=== PATIENT | male | born 1960 | race Caucasian/White ===

== ENCOUNTER 2017-06-03 18:46 | Emergency (ER) | payer SELFPAY ==
[~2017-06-03] VITALS: Ht 185.4 cm; Wt 78.6 kg
[~2017-06-03 18:46] MED LIST: AMLO5TAB4 PO; HYDR-3240 PO
[2017-06-03] MEDS ORDERED: SODIUM CHLORIDE FLUSH 10ML SYR IVF ONE (19:30)
[2017-06-03] MEDS ORDERED: SODIUM CHLORIDE 0.9% 1,000ML IVBOLUS ONE (19:30)
[2017-06-03] MEDS ORDERED: LABETALOL 5MG/ML, 20ML IVPush ONE (19:30)
[2017-06-03] MEDS ORDERED: LABETALOL 5MG/ML, 20ML ONE (19:43)
[2017-06-03 19:48] LABS: ASPARTATE AMINO TRANSFERASE 157 U/L (15-37); BLOOD UREA NITROGEN 15 mg/dL (7-18)
[2017-06-03 19:53] LABS: IS PT STATUS REG ER OR PRE ER? YES
[2017-06-03] MEDS ORDERED: hydrALAzine 20 MG/ML, 1ML IV ONE (20:30)
[2017-06-03 21:06] VITALS: BP 173/106
== END 2017-06-03 21:26 | disposition home or self-care (01) ==
LOC: ED 21:00
DX: I10 Essential (primary) hypertension (principal); F17.200 Nicotine dependence, unspecified, uncomplicated
CPT/HCPCS: 36415; 71010; 80053; 84484; 85025; 93005; 96361; 96374; 96375; 99285; J0360; J7030

== ENCOUNTER 2017-09-20 12:06 | Inpatient (IN) | payer MEDICAID ==
[~2017-09-20] VITALS: Ht 175.3 cm; Wt 80.0 kg
[2017-09-20] MEDS ORDERED: NITROGLYCERIN SINGLE TAB 0.4 MG SL ONE (12:53)
[2017-09-20] MEDS ORDERED: ONDANSETRON 2MG/ML, 2ML ONE (12:53)
[2017-09-20] MEDS ORDERED: ASPIRIN 81 MG TABLET CHEW ONE (12:53)
[2017-09-20 12:59] LABS: HEMOGLOBIN 16.5 g/dL (13.7-18.0); WHITE BLOOD COUNT 5.4 x10^3/uL (3.4-10)
[2017-09-20] MEDS ORDERED: ASPIRIN 81 MG TABLET CHEW PO ONE (13:00)
[2017-09-20] MEDS ORDERED: NITROGLYCERIN SINGLE TAB 0.4 MG SL PRN (13:00)
[2017-09-20] MEDS ORDERED: SODIUM CHLORIDE FLUSH 10ML SYR IVF ONE (13:00)
[2017-09-20] MEDS ORDERED: ONDANSETRON 2MG/ML, 2ML IVPush ONE (13:00)
[2017-09-20 13:10] LABS: ASPARTATE AMINO TRANSFERASE 149 U/L (15-37); BLOOD UREA NITROGEN 12 mg/dL (7-18)
[2017-09-20 13:20] LABS: IS PT STATUS REG ER OR PRE ER? YES
[2017-09-20] MEDS ORDERED: LABETALOL 5MG/ML, 20ML IVPush ONE (13:30)
[2017-09-20] MEDS ORDERED: SODIUM CHLORIDE FLUSH 10ML SYR IVF PRN (14:30)
[2017-09-20 15:08] VITALS: BP 167/105
[2017-09-20] MEDS: ENOXAPARIN 40 MG/0.4 ML SQ SCH (16:55)
[2017-09-20] MEDS ORDERED: ONDANSETRON 2MG/ML, 2ML IVPush PRN (17:00)
[2017-09-20] MEDS ORDERED: LABETALOL 5MG/ML, 20ML IVPush PRN (17:00)
[2017-09-20] MEDS ORDERED: POLYETHYLENE GLYCOL 17 GM PACKET PO PRN (17:00)
[2017-09-20] MEDS ORDERED: DOCUSATE 100 MG CAPSULE PO PRN (17:00)
[2017-09-20] MEDS ORDERED: ACETAMINOPHEN 325 MG TABLET PO PRN (17:00)
[2017-09-20] MEDS ORDERED: LORazepam 2 MG/ML, 1ML IVPush PRN (17:00)
[2017-09-20] MEDS ORDERED: POTASSIUM CHLORIDE 20 MEQ TAB.ER.PRT PO ONE (17:00)
[2017-09-20] MEDS ORDERED: BISACODYL 10 MG SUPP PR PRN (17:00)
[2017-09-20] MEDS ORDERED: NITROGLYCERIN 0.4 MG BOTTLE (25 TABS) SL PRN (17:00)
[2017-09-20] MEDS: HYDROcodone/APAP 5/325 TABLET PO PRN ×2 (17:15→22:46)
[2017-09-20 17:57] LABS: IS PT STATUS REG ER OR PRE ER? NO
[2017-09-20 19:30] VITALS: BP 183/106
[2017-09-20] MEDS: FAMOTIDINE 20 MG/2 ML IVPush SCH (20:12)
[2017-09-20] MEDS: ENALAPRILAT 1.25 MG/ML, 2ML IVPush PRN (20:12)
[2017-09-20] MEDS ORDERED: LISINOPRIL 5 MG TABLET PO SCH (21:00)
[2017-09-20 22:41] LABS: IS PT STATUS REG ER OR PRE ER? NO
[2017-09-20 22:43] VITALS: BP 158/107
[2017-09-20] MEDS ORDERED: NICOTINE 14MG/24 HR PATCH.TD24 TD ONE (23:00)
[2017-09-20 23:17] VITALS: BP 152/102
[2017-09-21 02:00] VITALS: BP 169/108
[2017-09-21 05:17] LABS: HEMOGLOBIN 15.4 g/dL (13.7-18.0); WHITE BLOOD COUNT 3.3 x10^3/uL (3.4-10)
[2017-09-21] MEDS: HYDROcodone/APAP 5/325 TABLET PO PRN ×2 (05:19→12:10)
[2017-09-21 05:20] LABS: BLOOD UREA NITROGEN 19 mg/dL (7-18)
[2017-09-21 05:31] LABS: ASPARTATE AMINO TRANSFERASE 102 U/L (15-37)
[2017-09-21] MEDS ORDERED: ASPIRIN 325 MG TABLET EC PO SCH (06:00)
[2017-09-21 07:14] VITALS: BP 186/88
[2017-09-21] MEDS: FAMOTIDINE 20 MG/2 ML IVPush SCH (08:23)
[2017-09-21] MEDS ORDERED: REGADENOSON 0.4 MG/5 ML SYRINGE ONE (08:33)
[2017-09-21] MEDS ORDERED: THIAMINE 100MG TABLET PO SCH (09:00)
[2017-09-21] MEDS ORDERED: LISINOPRIL 10 MG TABLET PO SCH (09:00)
[2017-09-21] MEDS ORDERED: FOLIC ACID 1 MG TABLET PO SCH (09:00)
[2017-09-21] MEDS ORDERED: AMLODIPINE 2.5 MG TABLET PO SCH (09:00)
[2017-09-21 10:34] VITALS: BP 157/105
[2017-09-21 12:19] VITALS: BP 176/116
[2017-09-21] MEDS: ENALAPRILAT 1.25 MG/ML, 2ML IVPush PRN (12:19)
[2017-09-21 14:00] VITALS: BP 167/110
[2017-09-21] MEDS ORDERED: AMLODIPINE 2.5 MG TABLET PO ONE (14:00)
[2017-09-21] MEDS ORDERED: FOLI-17 PO (15:55)
[2017-09-21] MEDS ORDERED: THIA100T6 PO (15:55)
[2017-09-21] MEDS ORDERED: LISI-167 PO (15:55)
[2017-09-21] MEDS ORDERED: AMLO5TAB2 PO (15:55)
[2017-09-21] MEDS: ENOXAPARIN 40 MG/0.4 ML SQ SCH (16:07)
[2017-09-21 16:08] VITALS: BP 166/96
[2017-09-21] MEDS ORDERED: NICO1PAT TD (16:18)
[2017-09-21] MEDS ORDERED: AMLODIPINE 5 MG TABLET PO SCH (21:00)
== END 2017-09-21 17:51 | disposition home or self-care (01) | DRG 305 ==
LOC: ED 14:01 → EDIP 14:22 → 5SO 15:05
PROVIDERS: ADMIT Internal Medicine; ATTEND Internal Medicine
DX: I11.9 Hypertensive heart disease without heart failure (principal); K76.0 Fatty (change of) liver, not elsewhere classified; D75.89 Other specified diseases of blood and blood-forming organs; I10 Essential (primary) hypertension; E87.6 Hypokalemia; F17.200 Nicotine dependence, unspecified, uncomplicated; F10.20 Alcohol dependence, uncomplicated; I35.8 Other nonrheumatic aortic valve disorders; Z66 Do not resuscitate; Z82.3 Family history of stroke; Z88.5 Allergy status to narcotic agent; Z90.49 Acquired absence of other specified parts of digestive tract; Z91.14 Patient's other noncompliance with medication regimen; Z91.19 Patient's noncompliance with other medical treatment and regimen
CPT/HCPCS: 36415; 71010; 76700; 78452; 80053; 80061; 81001; 82607; 82746; 83735; 83880; 84100; 84443; 84484; 85025; 85379; 85610; 86704; 86706; 86708; 86803; 87086; 87340; 93005; 93017; 93306; 96374; J1650; J2405; J2785; A9502; C9898; S0028

== ENCOUNTER 2017-09-22 06:30 | Emergency (ER) | payer MEDICAID ==
[~2017-09-22] VITALS: Ht 177.8 cm; Wt 80.0 kg
[~2017-09-22 06:30] MED LIST changes: +AMLO5TAB2 PO; +FOLI-17 PO; +LISI-167 PO; +NICO1PAT TD; +THIA100T6 PO
[2017-09-22] MEDS ORDERED: SODIUM CHLORIDE 0.9% 1,000ML IVBOLUS ONE (07:00)
[2017-09-22] MEDS ORDERED: ASPIRIN 81 MG TABLET CHEW PO ONE (07:00)
[2017-09-22] MEDS ORDERED: LORazepam 2 MG/ML, 1ML IVPush ONE (07:00)
[2017-09-22] MEDS ORDERED: THIAMINE 100MG TABLET PO ONE (07:00)
[2017-09-22] MEDS ORDERED: ONDANSETRON 2MG/ML, 2ML IVPush ONE (07:00)
[2017-09-22] MEDS ORDERED: LORazepam 2 MG/ML, 1ML ONE (07:14)
[2017-09-22] MEDS ORDERED: THIAMINE 100MG TABLET ONE (07:17)
[2017-09-22] MEDS ORDERED: ASPIRIN 81 MG TABLET CHEW ONE (07:17)
[2017-09-22] MEDS ORDERED: ONDANSETRON 2MG/ML, 2ML ONE (07:17)
[2017-09-22 07:23] LABS: HEMATOCRIT 47.6 % (39.2-51.8); HEMOGLOBIN 16.4 g/dL (13.7-18.0); WHITE BLOOD COUNT 4.5 x10^3/uL (3.4-10)
[2017-09-22 07:30] LABS: ASPARTATE AMINO TRANSFERASE 65 U/L (15-37); BLOOD UREA NITROGEN 17 mg/dL (7-18)
[2017-09-22 07:42] LABS: IS PT STATUS REG ER OR PRE ER? YES
[2017-09-22 09:53] VITALS: BP 176/112
== END 2017-09-22 09:56 | disposition home or self-care (01) ==
LOC: ED 07:03
DX: K29.20 Alcoholic gastritis without bleeding (principal); F41.9 Anxiety disorder, unspecified; F10.10 Alcohol abuse, uncomplicated; I10 Essential (primary) hypertension; F17.210 Nicotine dependence, cigarettes, uncomplicated
CPT/HCPCS: 36415; 74022; 80053; 83690; 84484; 85025; 93005; 96361; 96374; 96375; 99285; J2060; J2405; J7030

== ENCOUNTER 2017-11-04 06:43 | Emergency (ER) | payer MEDICAID ==
[~2017-11-04] VITALS: Ht 177.8 cm; Wt 75.9 kg
[2017-11-04 06:45] VITALS: BP 156/110
== END 2017-11-04 07:59 | disposition home or self-care (01) ==
LOC: ED 07:40
DX: J20.9 Acute bronchitis, unspecified (principal)
CPT/HCPCS: 71020; 99284

== ENCOUNTER 2019-09-15 19:40 | Emergency (ER) | payer MEDICAID ==
[~2019-09-15] VITALS: Ht 177.8 cm; Wt 78.0 kg
[~2019-09-15 19:40] MED LIST changes: +AMLO-150 PO; -AMLO5TAB2 PO; -THIA100T6 PO; +THIA100T67 PO
[2019-09-15 20:26] LABS: BASOPHILS # (AUTO) 0.01 x10^3/uL (0-0.1); BASOPHILS % (AUTO) 0 % (0-1); EOSINOPHILS # (AUTO) 0.17 x10^3/uL (0-0.4); EOSINOPHILS % (AUTO) 3 % (1-7); LYMPHOCYTES # (AUTO) 1.17 x10^3/uL (1-3.4); LYMPHOCYTES % (AUTO) 19 % (22-44); MD NO; MEAN CORPUSCULAR HEMOGLOBIN 34.5 pg (27.5-34.5); MEAN CORPUSCULAR HGB CONC 33.8 g/dL (33.2-36.2); MEAN CORPUSCULAR VOLUME 102.2 fL (81-97); MEAN PLATELET VOLUME 8.1 fL (7.4-10.4); MONOCYTES % (AUTO) 10 % (2-9); NEUTROPHILS # (AUTO) 4.23 x10^3/uL (1.8-6.8); NEUTROPHILS % (AUTO) 68 % (42-75); PLATELET COUNT 239 x10^3/uL (130-400); RED BLOOD COUNT 4.36 x10^6/uL (4.38-5.82); RED CELL DISTRIBUTION WIDTH 13.2 % (9.4-14.8)
[2019-09-15 20:34] LABS: ALBUMIN 3.5 g/dL (3.4-5.0); ANION GAP 8 mmol/L (5-15); CALCIUM 8.6 mg/dL (8.5-10.1); CHLORIDE 103 mmol/L (98-107); CREATININE 2.84 mg/dL (0.7-1.3)
[2019-09-15 20:38] LABS: TROPONIN I < 0.015 ng/mL (0.000-0.045)
--- NOTE | 2019-09-15 21:05 | NUR ---
rounded on patient, patient resting in bed; vital signs stable, no noted needs at this time. will continue to monitor.
[2019-09-15] MEDS ORDERED: METHOCARBAMOL 750 MG TABLET ONE (22:20)
[2019-09-15] MEDS ORDERED: METHOCARBAMOL 750 MG TABLET PO ONE (22:30)
[2019-09-15 22:59] VITALS: BP 121/80
== END 2019-09-15 23:01 | disposition home or self-care (01) ==
LOC: ED 22:45
DX: G89.29 Other chronic pain (principal); M54.5 Low back pain; N17.9 Acute kidney failure, unspecified; R20.2 Paresthesia of skin; Z72.9 Problem related to lifestyle, unspecified
CPT/HCPCS: 36415; 71046; 80048; 82040; 84484; 85025; 93005; 99284

== ENCOUNTER 2021-08-02 18:25 | Emergency (ER) | payer MEDICAID ==
[~2021-08-02] VITALS: Ht 177.8 cm; Wt 74.0 kg
[~2021-08-02 18:25] MED LIST changes: -FOLI-17 PO; +FOLI1TAB32 PO; +HYDR-2214 PO; -HYDR-3240 PO
[2021-08-02 19:12] LABS: BASOPHILS % (AUTO) 0 % (0-1); EOSINOPHILS % (AUTO) 1 % (1-7); LYMPHOCYTES % (AUTO) 10 % (22-44); MEAN CORPUSCULAR HEMOGLOBIN 34.6 pg (27.5-34.5); MEAN CORPUSCULAR HGB CONC 34.8 g/dL (33.2-36.2); MEAN PLATELET VOLUME 7.2 fL (7.4-10.4); MONOCYTES % (AUTO) 6 % (2-9); NEUTROPHILS % (AUTO) 84 % (42-75); PLATELET COUNT 231 x10^3/uL (130-400); RED CELL DISTRIBUTION WIDTH 12.9 % (9.4-14.8)
[2021-08-02 19:24] LABS: ALANINE AMINOTRANSFERASE 35 U/L (12-78); ALBUMIN 3.9 g/dL (3.4-5.0); ANION GAP 5 mmol/L (5-15); CALCIUM 9.4 mg/dL (8.5-10.1); CHLORIDE 103 mmol/L (98-107); CREATININE 1.09 mg/dL (0.7-1.3)
[2021-08-02 19:28] LABS: ALKALINE PHOSPHATASE 82 U/L (45-117); BILIRUBIN,TOTAL 0.7 mg/dL (0.2-1.0); TOTAL PROTEIN 8.5 g/dL (6.4-8.2); TROPONIN I < 0.015 ng/mL (0.000-0.045)
[2021-08-02] MEDS ORDERED: ASPIRIN 325 MG TABLET PO ONE (22:30)
[2021-08-02] MEDS ORDERED: SODIUM CHLORIDE FLUSH 10ML SYR IVF SCH (23:00)
[2021-08-02] MEDS ORDERED: hydrALAzine 20 MG/ML, 1ML IV ONE (23:00)
[2021-08-02] MEDS ORDERED: LORazepam 2 MG/ML, 1ML IVPush ONE (23:00)
[2021-08-02] MEDS ORDERED: ASPIRIN 325 MG TABLET ONE (23:02)
[2021-08-02] MEDS ORDERED: hydrALAzine 20 MG/ML, 1ML ONE (23:02)
[2021-08-02] MEDS ORDERED: LORazepam 2 MG/ML, 1ML ONE (23:03)
[2021-08-02 23:04] LABS: TROPONIN I < 0.015 ng/mL (0.000-0.045)
--- NOTE | 2021-08-02 23:10 | NUR ---
PT WHEELED TO ROOM, C/O HI BLOOD PRESSURES. PLACED ON CR MONITOR, AND PA TO BEDSIDE TO EVAL AND WRITE ORDERS. ORDERS RECEIVED AND PIV STARTED TO LEFT HAND AND FLUSHED WELL, TAPED WELL, AND MEDS GIVEN.
[2021-08-03] VITALS: BP 168/104
--- NOTE | 2021-08-03 01:18 | NUR ---
F/U AND D/C INSTRUCTIONS GIVEN TO PT AND HE V/U. PRESCRIPTIONS PROVIDED FOR PTS MEDS AND HE WAS THANKFUL. PIV D/C'D AND CATH TIP INTACT, AND NO ISSUE. PT AMBULATED TO DISCHARGE DESK.
== END 2021-08-03 01:19 | disposition home or self-care (01) ==
LOC: ED 18:45
DX: R07.89 Other chest pain (principal); R42 Dizziness and giddiness; I10 Essential (primary) hypertension; R06.02 Shortness of breath; F17.210 Nicotine dependence, cigarettes, uncomplicated; R94.31 Abnormal electrocardiogram [ECG] [EKG]; Z86.73 Personal history of transient ischemic attack (TIA), and cerebral infarction without residual deficits
CPT/HCPCS: 36415; 71045; 80053; 84484; 85025; 93005; 96374; 96375; 99285; J0360; J2060